=== PATIENT | male | born 1950 | race Caucasian/White ===

== ENCOUNTER 2022-01-31 14:26 | Outpatient (CLI) | payer OTHER, MEDICARE ==
[~2022-01-31] VITALS: Ht 182.9 cm; Wt 158.8 kg
[2022-01-31 15:53] LABS: BASOPHILS % (AUTO) 0.3 % (0-1); EOSINOPHILS % (AUTO) 0.3 % (0-6); LYMPHOCYTES # (AUTO) 0.9 X10'3 (1.1-4.8); LYMPHOCYTES % (AUTO) 11.5 % (21-51); MEAN CORPUSCULAR HEMOGLOBIN 32.3 PG (27.0-31.0); MEAN CORPUSCULAR HGB CONC 33.6 g/dL (33.0-36.5); MEAN CORPUSCULAR VOLUME 96.1 FL (78-98); MEAN PLATELET VOLUME 9.1 FL (7.4-10.4); MONOCYTES # (AUTO) 0.8 X10'3 (0-0.9); MONOCYTES % (AUTO) 9.6 % (2-12); NEUTROPHILS # (AUTO) 6.3 X10'3 (1.8-7.7); NEUTROPHILS % (AUTO) 78.3 % (42-75); PRE OP HEMATOCRIT 45.4 % (42.0-52.0); PRE OP HEMOGLOBIN 15.3 g/dL (14.0-17.9); PRE OP PLATELET COUNT 194 X10'3 (140-440); RED BLOOD COUNT 4.73 X10'6 (4.70-6.10); RED CELL DISTRIBUTION WIDTH 13.6 % (11.5-14.5)
[2022-01-31 16:09] LABS: PRE OP PROTIME 10.8 SECONDS (9.0-12.0)
[2022-01-31 16:21] LABS: ALBUMIN 3.8 G/DL (3.4-5.0); ALBUMIN/GLOBULIN RATIO 1.1 (1.1-1.5); ALKALINE PHOSPHATASE 95 IU/L (46-116); BLOOD UREA NITROGEN 28 MG/DL (7-18); BUN/CREATININE RATIO 26.2 (5.4-32.0); CALCIUM 9.3 MG/DL (8.5-10.1); CHLORIDE 106 MMOL/L (99-107); CREATININE 1.07 MG/DL (0.60-1.10); PRE OP ALT 28 U/L (30-65); PRE OP ANION GAP 7 (8-16); PRE OP AST 17 U/L (10-37); PRE OP BILIRUB, TOTAL 0.8 MG/DL (0.0-1.0); PRE OP GLUCOSE 112 MG/DL (70-104); PRE OP POTASSIUM 4.3 MMOL/L (3.4-5.1); PRE OP SODIUM 140 MMOL/L (135-145); TOTAL PROTEIN 7.2 G/DL (6.4-8.2); eGFR 68 ML/MIN
[2022-01-31] MEDS ORDERED: CYAN500T71 PO (16:59)
[2022-01-31] MEDS ORDERED: CHOL200012 PO (16:59)
[2022-01-31] MEDS ORDERED: BENA20TA82 PO (16:59)
[2022-01-31] MEDS ORDERED: MULT-1085 PO (16:59)
[2022-01-31] MEDS ORDERED: ATOR40TA PO (16:59)
[2022-01-31] MEDS ORDERED: HYDR25TA5 PO (16:59)
[2022-01-31] MEDS ORDERED: ASCO-134 PO (16:59)
[2022-01-31] MEDS ORDERED: ZINC50TA67 PO (16:59)
[2022-01-31] MEDS ORDERED: FLO0.4C PO (16:59)
[2022-01-31] MEDS ORDERED: CYAN50003 PO (16:59)
[2022-01-31] MEDS ORDERED: FINA5TAB11 PO (16:59)
[2022-01-31] MEDS ORDERED: SPIR25TA PO (16:59)
[2022-01-31] MEDS ORDERED: CALC-336 PO (16:59)
[2022-01-31] MEDS ORDERED: MYCO500T5 PO (16:59)
[2022-01-31] MEDS ORDERED: PYRI60TA PO (16:59)
[2022-01-31] MEDS ORDERED: LEVO100T PO (16:59)
[2022-01-31] MEDS ORDERED: AMLO10TA PO (16:59)
[2022-01-31] MEDS ORDERED: PRED5TAB PO (16:59)
[2022-02-05] MEDS ORDERED: ringers solution, lacted 1,000 ML IV SCH (05:00)
[2022-02-05] MEDS ORDERED: ceFAZolin inj. 3,000 MG in normal saline 100ml IV soln 100 ML IV ONE (05:30)
[2022-02-05] MEDS ORDERED: oxyCODONE SR 10mg (sust. release) tab PO ONE (05:30)
[2022-02-05] MEDS ORDERED: famotidine 20mg tablet PO ONE (05:30)
[2022-02-05] MEDS ORDERED: oxyCODONE SR 10mg (sust. release) tab -2 tabs (20mg) PO ONE (05:30)
[2022-02-05] MEDS ORDERED: vancomycin 1,500 MG in NS 300ml IV soln IV ONE (05:30)
== END 2022-01-31 23:59 | disposition home or self-care (01) ==
LOC: PRE-OP 14:26 → EDSTATUS 04-09 14:30
PROVIDERS: ATTEND Orthopaedic Surgery
DX: Z01.818 Encounter for other preprocedural examination (principal); M17.0 Bilateral primary osteoarthritis of knee
CPT/HCPCS: 36415; 80053; 84443; 85025; 85610; 85730; 86885; 86900; 86901; 87081; J0690; J3370; J3490; J7040; J7120

== ENCOUNTER 2022-04-09 08:10 | Inpatient (IN) | payer OTHER, BC ==
[2022-04-03 16:15] LABS: BASOPHILS % (AUTO) 0.2 % (0-1); EOSINOPHILS % (AUTO) 0.3 % (0-6); LYMPHOCYTES # (AUTO) 0.9 X10'3 (1.1-4.8); MEAN CORPUSCULAR HEMOGLOBIN 32.9 PG (27.0-31.0); MEAN CORPUSCULAR HGB CONC 33.9 g/dL (33.0-36.5); MEAN CORPUSCULAR VOLUME 97.1 FL (78-98); MONOCYTES # (AUTO) 0.9 X10'3 (0-0.9); MONOCYTES % (AUTO) 9.8 % (2-12); NEUTROPHILS # (AUTO) 7.5 X10'3 (1.8-7.7); NEUTROPHILS % (AUTO) 79.7 % (42-75); PRE OP HEMATOCRIT 45.9 % (42.0-52.0); PRE OP HEMOGLOBIN 15.6 g/dL (14.0-17.9); PRE OP PLATELET COUNT 194 X10'3 (140-440); RED BLOOD COUNT 4.73 X10'6 (4.70-6.10); RED CELL DISTRIBUTION WIDTH 13.8 % (11.5-14.5)
[2022-04-03 16:22] LABS: ALBUMIN 3.7 G/DL (3.4-5.0); ALKALINE PHOSPHATASE 90 IU/L (46-116); BLOOD UREA NITROGEN 36 MG/DL (7-18); BUN/CREATININE RATIO 29.5 (5.4-32.0); CALCIUM 8.9 MG/DL (8.5-10.1); CHLORIDE 104 MMOL/L (99-107); CREATININE 1.22 MG/DL (0.60-1.10); PRE OP ALT 29 U/L (30-65); PRE OP ANION GAP 9 (8-16); PRE OP AST 13 U/L (10-37); PRE OP BILIRUB, TOTAL 0.7 MG/DL (0.0-1.0); PRE OP GLUCOSE 114 MG/DL (70-104); PRE OP POTASSIUM 4.5 MMOL/L (3.4-5.1); PRE OP SODIUM 139 MMOL/L (135-145); TOTAL CARBON DIOXIDE 26.1 MMOL/L (24-32); TOTAL PROTEIN 7.4 G/DL (6.4-8.2); eGFR 58 ML/MIN
[2022-04-09] VITALS (18 sets, daily range): BP systolic 87–145; BP diastolic 37–83
[~2022-04-09] VITALS: Ht 182.9 cm; Wt 153.9 kg
[2022-04-09] MEDS: predniSONE 5mg tablet PO SCH (08:00)
[~2022-04-09 08:10] MED LIST: AMLO10TA PO; ASCO-134 PO; ATOR40TA PO; BENA20TA82 PO; CALC-336 PO; CHOL200012 PO; CYAN50003 PO; FINA5TAB11 PO; FLO0.4C PO; HYDR25TA5 PO; HYDROmorphone 1 mg/ml syringe IV PRN; HYDROmorphone inj. 0.5 MG/0.5 ML DISP.SYRIN IV PRN; LEVO100T PO; MULT-1085 PO; MYCO500T5 PO; PRED5TAB PO; PYRI60TA PO; SPIR25TA PO; ZINC50TA67 PO; acetaminophen 325mg tablet PO ONE; acetaminophen 325mg tablet PO PRN; bisacodyl 10mg suppository rectal RC PRN; ceFAZolin inj. 3,000 MG in normal saline 100ml IV soln 100 ML IV ONE; celeCOXIB 100mg capsule PO ONE; diphenhydrAMINE 25mg capsule PO PRN; famotidine 20mg tablet PO ONE; gabapentin 300mg capsule PO ONE; magnesium hydroxide 30ml (MOM) UD suspension PO PRN; metoclopramide 5 mg/ml inj IV ONE; naloxone 0.4 mg/ml inj IV PRN; ondansetron/PF 4mg/2ml inj IV PRN; oxyCODONE SR 10mg (sust. release) tab -2 tabs (20mg) PO ONE; ringers solution, lacted 1,000 ML IV SCH; traMADol 50MG tablet PO PRN; tranexamic acid inj. 1,000 MG in normal saline 100ml IV soln 90 ML IV ONE; vancomycin 1,500 MG in NS 300ml IV soln IV ONE
[2022-04-09] MEDS: mycophenolate mofetil 250mg capsule PO SCH ×2 (08:46→20:49)
--- NOTE | 2022-04-09 09:00 | NUR ---
PT ABLE TO DO SHOWERS INSTRUCTED-NOT GIVEN OINTMENT, PER DR. STOKES, CSM INTACT TO BLE, ABLE TO VIEW ONLINE INFO RE:Neymar MACIAS
[2022-04-09] MEDS: pyridostigmine br 60mg tablet PO SCH ×4 (10:00→20:48)
[2022-04-09] MEDS ORDERED: epiNEPHrine 1 mg/ml inj ONE (10:53)
[2022-04-09] MEDS ORDERED: ketorolac trometh. 30mg/ml inj. ONE (10:53)
[2022-04-09] MEDS ORDERED: ROPIVAcaine 0.5% (5mg/ml) 30ml vial ONE ×2 (10:54→11:59)
[2022-04-09] MEDS ORDERED: fentaNYL/PF 50MCG/1 ML 2ML syringe ONE (12:54)
[2022-04-09] MEDS ORDERED: MIDAZolam 1 MG/ML 5ML VIAL ONE (12:55)
[2022-04-09] MEDS ORDERED: labetalol 20mg/4ml (5mg/ml) syringe IV PRN (13:35)
[2022-04-09] MEDS ORDERED: ondansetron/PF 4mg/2ml inj IV PRN (13:35)
[2022-04-09] MEDS ORDERED: ROPIVAcaine 0.2% (10 MG/5 ML) BOLUS INJECTION ADDCANAL PRN (13:35)
[2022-04-09] MEDS ORDERED: morphine 4 MG/ML inj SYRINge IV PRN (13:35)
[2022-04-09] MEDS ORDERED: fentaNYL/PF 50MCG/1 ML 2ML syringe IV PRN ×2 (13:35)
[2022-04-09] MEDS ORDERED: ROPIVAcaine 0.2%/PF PUMP/bolus 545 ML ADDCANAL SCH (13:35)
[2022-04-09] MEDS ORDERED: hydrALAZINE 20mg/ml inj. IV PRN (13:35)
[2022-04-09] MEDS ORDERED: ringers solution, lacted 1,000 ML IV SCH (13:35)
[2022-04-09] MEDS ORDERED: morphine 2 MG/ML inj. syringe IV PRN (13:35)
[2022-04-09] MEDS ORDERED: vancomycin 1,000mg inj ONE (14:07)
[2022-04-09] MEDS: cloNIDine hcl/PF 100mcg/ml inj ONE ×2 (14:28→14:34)
--- NOTE | 2022-04-09 14:59 | NUR ---
Received from OR via BED, accompanied by Anesthesiologist and report given by MELIDA Anesthesiologist. PATIENT WAKING UP, DENIES PAIN, V/S WNL, SCD ON, 20G TO L HAND, KEENAN drsg to RIGHT KNEE C/D/I with POWDER ICE PACK. Addendum: 04/09/22 at 1526 by Dung Lai RN Amended: Links added.
[2022-04-09] MEDS: potassium cl 20mEq in 1/2 NS 1,000 ML IV SCH ×3 (15:00→23:00)
[2022-04-09] MEDS ORDERED: ceFAZolin/D5W- 1GM premix 50 ML IV SCH (16:00)
[2022-04-09] MEDS ORDERED: tranexamic acid inj. 1,200 MG in normal saline 100ml IV soln 88 ML IV ONE (16:00)
--- NOTE | 2022-04-09 16:08 | NUR ---
Patient in room PAS IN 900. I have received report from Emilio ARRIAGA and had the opportunity to ask questions and awaiting Pt. arrival.
--- NOTE | 2022-04-09 16:14 | NUR ---
PATIENT HAS MET ALL CRITERIA FOR TRANSFER TO ORTHO FLOOR. VSS. DRESSINGS INTACT. BED LOW, CALL LIGHT PRESENT AND 2 RAILS UP. RN PRESENT TO ACCEPT CARE OF PATIENT AND REPORT HAS BEEN CALLED. ALL QUESTIONS ANSWERED TO ACCEPTING RN. Addendum: 04/09/22 at 1636 by Dung Lai RN Amended: Links added.
--- NOTE | 2022-04-09 16:44 | NUR ---
Pt. arrived in Rm 4021B at 1635, postop vitals initiated.
[2022-04-09] MEDS: cefazolin/dext.iso 2gm/100ml 100 ML IV SCH (17:48)
--- NOTE | 2022-04-09 18:04 | NUR ---
ice pack in place no c/o pain
--- NOTE | 2022-04-09 18:58 | NUR ---
Problems reprioritized. Patient report given, questions answered & plan of care reviewed with Alexandra ARRIAGA.
--- NOTE | 2022-04-09 19:00 | NUR ---
Patient in room ORTHO 4021. I have received report from Kaela ARRIAGA and had the opportunity to ask questions and assume patient care.
[2022-04-09] MEDS: gabapentin 300mg capsule PO SCH (20:48)
[2022-04-09] MEDS: ascorbic acid 500mg tablet PO SCH (20:52)
[2022-04-09] MEDS ORDERED: sennosides 8.6mg tablet PO SCH (21:00)
[2022-04-09] MEDS ORDERED: vancomycin inj 1,750 MG in normal saline 500ml IV soln 350 ML IV ONE (23:00)
[2022-04-10] MEDS: cefazolin/dext.iso 2gm/100ml 100 ML IV SCH (01:39)
[2022-04-10 01:55] VITALS: BP 153/75
[2022-04-10 05:00] VITALS: BP 115/79
[2022-04-10] MEDS: pyridostigmine br 60mg tablet PO SCH (05:25)
--- NOTE | 2022-04-10 06:25 | NUR ---
Problems reprioritized. Patient report given, questions answered & plan of care reviewed with Jacquie ARRIAGA.
[2022-04-10 06:27] LABS: ANION GAP 9 (8-16); CHLORIDE 105 MMOL/L (99-107); POTASSIUM 4.5 MMOL/L (3.5-5.1); SODIUM 137 MMOL/L (135-145); TOTAL CARBON DIOXIDE 23.5 MMOL/L (24-32)
[2022-04-10 06:32] LABS: BASOPHILS % (AUTO) 0.1 % (0-1); EOSINOPHILS % (AUTO) 0 % (0-6); HEMATOCRIT 37.2 % (42.0-52.0); HEMOGLOBIN 12.6 g/dl (14.0-17.9); LYMPHOCYTES # (AUTO) 0.4 X10'3 (1.1-4.8); MEAN CORPUSCULAR HEMOGLOBIN 32.8 PG (27.0-31.0); MEAN CORPUSCULAR HGB CONC 33.9 g/dL (33.0-36.5); MEAN CORPUSCULAR VOLUME 96.6 FL (78-98); MONOCYTES % (AUTO) 8.7 % (2-12); NEUTROPHILS # (AUTO) 9.5 X10'3 (1.8-7.7); NEUTROPHILS % (AUTO) 87.2 % (42-75); PLATELET COUNT 163 X10'3 (140-440); RED BLOOD COUNT 3.85 X10'6 (4.70-6.10); RED CELL DISTRIBUTION WIDTH 13.7 % (11.5-14.5); WHITE BLOOD COUNT 10.9 X10'3 (4.5-11.0)
[2022-04-10] MEDS: potassium cl 20mEq in 1/2 NS 1,000 ML IV SCH (07:00)
[2022-04-10] MEDS ORDERED: lisinopril 20mg tablet PO SCH (08:00)
[2022-04-10] MEDS ORDERED: atorvastatin 20mg tablet PO SCH (08:00)
[2022-04-10] MEDS ORDERED: amLODIPine 5mg tablet PO SCH (08:00)
[2022-04-10] MEDS ORDERED: multivitamins, therapeutics tablet PO SCH (08:00)
[2022-04-10] MEDS ORDERED: finasteride 5mg tablet PO SCH (08:00)
[2022-04-10] MEDS ORDERED: levoTHYROXINE 100mcg tablet PO SCH (08:00)
[2022-04-10] MEDS ORDERED: tamsulosin 0.4mg capsule PO SCH (08:00)
[2022-04-10] MEDS ORDERED: spironolactone 25 MG tablet PO SCH (08:00)
[2022-04-10] MEDS ORDERED: HYDROchlorothiazide 25mg tablet PO SCH (08:00)
[2022-04-10] MEDS ORDERED: zinc sulfate 220mg capsule PO SCH (08:00)
[2022-04-10] MEDS ORDERED: aspirin 325mg tablet PO SCH (08:30)
[2022-04-10] MEDS: predniSONE 5mg tablet PO SCH (09:01)
[2022-04-10] MEDS: ascorbic acid 500mg tablet PO SCH (09:01)
[2022-04-10] MEDS: gabapentin 300mg capsule PO SCH (09:04)
[2022-04-10 10:00] VITALS: BP 147/79
--- NOTE | 2022-04-10 10:40 | NUR ---
Joint surgery consult: Pt s/p R knee surgery this admit per EMR. Pt/SO seen by ANA for written/verbal high protein ed w/ RD contact information provided. ANA encouraged pt/SO to contact dietitian's office if further questions/concerns. Addendum: 04/10/22 at [address] Amended: Links added.
--- NOTE | 2022-04-10 12:35 | NUR ---
Patient discharge instruction reviewed with patient by Esme Palmer RN. Patients IV dc'd by Esme Palmer RN and Tele monitor Dc'd for discharge. Patients ON-Q ball full Patient was given instructions on removal and removal of KEENAN dressing. Patient states had all his belongings and was taken to vehicle by PCT
[2022-04-10] MEDS ORDERED: celeCOXIB 100mg capsule PO SCH (20:00)
== END 2022-04-10 12:40 | disposition home or self-care (01) | DRG 470 ==
LOC: PAS 08:10 → PAS IN 11:28 → ORTHO 4S 16:25
PROVIDERS: ADMIT Orthopaedic Surgery; ATTEND Orthopaedic Surgery
PROC: 3E0T3BZ Introduction of Anesthetic Agent into Peripheral Nerves and Plexi, Percutaneous Approach (ICD-10-PCS; 2022-04-09)
PROC: 3E0T33Z Introduction of Anti-inflammatory into Peripheral Nerves and Plexi, Percutaneous Approach (ICD-10-PCS; 2022-04-09)
PROC: 0SRC069 Replacement of Right Knee Joint with Oxidized Zirconium on Polyethylene Synthetic Substitute, Cemented, Open Approach (ICD-10-PCS; principal; 2022-04-09 12:49)
DX: M17.0 Bilateral primary osteoarthritis of knee (principal); Z68.42 Body mass index [BMI] 45.0-49.9, adult; I10 Essential (primary) hypertension; G47.30 Sleep apnea, unspecified; N40.0 Benign prostatic hyperplasia without lower urinary tract symptoms; E66.01 Morbid (severe) obesity due to excess calories; Z79.899 Other long term (current) drug therapy
CPT/HCPCS: 36415; 73560; 80051; 80053; 82948; 85025; 86885; 86900; 86901; 87081; 87811; 97110; 97116; 97161; A4215; A4615; A7000; C1713; C1776; G0378; J0171; J0690; J0735; J1885; J2250; J2765; J2795; J3010; J3370; J3480; J3490; J7040; J7120; J7512; J7517